=== PATIENT | male | born 1975 | race Caucasian/White ===

== ENCOUNTER 2017-05-02 20:37 | Inpatient (IN) | payer OTHER ==
[~2017-05-02] VITALS: Ht 188 cm; Wt 104.6 kg
[~2017-05-02 20:37] MED LIST: NO HOME MEDS; SERTRALINE; SIMVASTATIN20 MG PO; XANAX0.25 MG PO
[2017-05-02] MEDS ORDERED: ZYRTEC5 MG PO (20:47)
[2017-05-02] MEDS ORDERED: NORCO 325 MG-51 TAB PO (20:49)
[2017-05-02] MEDS ORDERED: FLAGYL 250250 MG/TAB PO (20:50)
[2017-05-02] MEDS ORDERED: CIPRO 500MG TA500 MG PO (20:50)
[2017-05-02 21:37] LABS: BASO % 0.3 % (0.0-2.0); EOS # 0.1 (0.0-0.7); EOS % 0.7 % (0-4.0); GRAN # 8.4 (1.4-6.5); HEMATOCRIT 44.5 % (42.0-52.0); HEMOGLOBIN 15.3 g/dl (13.5-18.0); LYMPH # 2.2 (1.2-3.4); LYMPH % 18.7 % (20.0-51.0); MEAN CELL VOLUME 84 fl (80.0-100.0); MEAN CORPUSCULAR HEMOGLOBIN 29 pg (27.0-31.0); MEAN CORPUSCULAR HGB CONC 34 g/dl (33.0-37.0); MEAN PLATELET VOLUME 9.4 fl (7.4-10.4); MONO # 0.8 (0.1-0.6); PLATELET COUNT 231 K/mm3 (130-400); WHITE BLOOD COUNT 11.5 K/mm3 (4.8-10.8)
[2017-05-02 21:54] LABS: ADJUSTED CALCIUM 8.8 mg/dL (8.4-10.2); ALBUMIN 4.6 gm/dL (3.5-5.0); BILIRUBIN,TOTAL 1.2 mg/dL (0.0-1.0); CALCIUM 9.3 mg/dL (8.4-10.2); CREATININE, serum 0.91 mg/dL (0.66-1.25); POTASSIUM 3.8 mmol/L (3.4-5.0); TOTAL PROTEIN 7.9 gm/dL (6.4-8.2)
[2017-05-03 00:16] VITALS: BP 121/60; PULSE 94; TEMP 98.7
[2017-05-03 04:01] LABS: COLLECTION METHOD CLEAN CATCH
[2017-05-03 04:07] LABS: MUCOUS Present /lpf; PH 5 (5-8); SQUAMOUS EPITHELIAL None Seen /hpf; URINE APPEARANCE Clear; URINE BACTERIA None Seen /hpf; URINE BILIRUBIN Negative (NEGATIVE); URINE BLOOD Negative (NEGATIVE); URINE COLOR Yellow; URINE GLUCOSE Negative (NEGATIVE); URINE KETONE Negative (NEGATIVE); URINE LEUKOCYTE ESTERASE Negative (NEGATIVE); URINE PROTEIN(semi-quant) Negative (NEGATIVE); URINE RBC None Seen /hpf; URINE UROBILINOGEN Negative (NEGATIVE); URINE WBC 0-2 /hpf
[2017-05-03 04:59] VITALS: BP 112/64; PULSE 86; TEMP 98.3
[2017-05-03 07:01] LABS: BASO % 0.2 % (0.0-2.0); EOS # 0.1 (0.0-0.7); EOS % 1.2 % (0-4.0); GRAN # 5.4 (1.4-6.5); GRAN % 63.3 % (42.2-75.2); HEMATOCRIT 39.2 % (42.0-52.0); LYMPH # 2.2 (1.2-3.4); LYMPH % 26.1 % (20.0-51.0); MEAN CELL VOLUME 86 fl (80.0-100.0); MEAN CORPUSCULAR HEMOGLOBIN 29 pg (27.0-31.0); MEAN CORPUSCULAR HGB CONC 33 g/dl (33.0-37.0); MEAN PLATELET VOLUME 9.6 fl (7.4-10.4); MONO # 0.8 (0.1-0.6); MONO % 8.8 % (1.7-9.3); PLATELET COUNT 188 K/mm3 (130-400); RED BLOOD COUNT 4.55 M/mm3 (4.20-5.60); WHITE BLOOD COUNT 8.6 K/mm3 (4.8-10.8)
[2017-05-03 07:09] LABS: HEMOGLOBIN 13.1 g/dl (13.5-18.0)
[2017-05-03 07:16] LABS: ADJUSTED CALCIUM 8.8 mg/dL (8.4-10.2); ALBUMIN 3.6 gm/dL (3.5-5.0); BILIRUBIN,TOTAL 0.9 mg/dL (0.0-1.0); CALCIUM 8.5 mg/dL (8.4-10.2); CHOLESTEROL RISK RATIO 5.2; CREATININE, serum 0.95 mg/dL (0.66-1.25); TOTAL PROTEIN 6.5 gm/dL (6.4-8.2)
[2017-05-03 07:55] VITALS: BP 118/65; PULSE 79; TEMP 98.7
[2017-05-03 11:53] VITALS: BP 109/68; PULSE 77; TEMP 97.7
[2017-05-03 15:42] VITALS: BP 117/74; PULSE 85; TEMP 98.4
[2017-05-03 21:04] VITALS: BP 105/55; PULSE 90; TEMP 99.4
[2017-05-04 00:33] VITALS: BP 121/75; PULSE 104; TEMP 101.5
[2017-05-04 04:03] VITALS: BP 107/67; PULSE 91; TEMP 100.1
[2017-05-04 08:07] VITALS: BP 111/74; PULSE 87; TEMP 99.1
[2017-05-04 11:16] VITALS: BP 124/79; PULSE 87; TEMP 98.4
[2017-05-04 14:11] LABS: BASO % 0.3 % (0.0-2.0); EOS # 0.2 (0.0-0.7); EOS % 2.1 % (0-4.0); GRAN % 57.9 % (42.2-75.2); HEMATOCRIT 39.6 % (42.0-52.0); HEMOGLOBIN 13.6 g/dl (13.5-18.0); LYMPH # 2.2 (1.2-3.4); LYMPH % 31.2 % (20.0-51.0); MEAN CELL VOLUME 84 fl (80.0-100.0); MEAN CORPUSCULAR HEMOGLOBIN 29 pg (27.0-31.0); MEAN CORPUSCULAR HGB CONC 34 g/dl (33.0-37.0); MEAN PLATELET VOLUME 9.7 fl (7.4-10.4); MONO # 0.6 (0.1-0.6); MONO % 8.2 % (1.7-9.3); PLATELET COUNT 223 K/mm3 (130-400); RED BLOOD COUNT 4.72 M/mm3 (4.20-5.60)
[2017-05-04 14:25] LABS: BILIRUBIN,TOTAL 0.8 mg/dL (0.0-1.0); CREATININE, serum 0.92 mg/dL (0.66-1.25); POTASSIUM 3.6 mmol/L (3.4-5.0); TOTAL PROTEIN 7.2 gm/dL (6.4-8.2)
[2017-05-04] MEDS ORDERED: FLAGYL500 MG PO ×2 (14:44→15:38)
[2017-05-04] MEDS ORDERED: CIPRO 500MG TA500 MG PO (14:44)
== END 2017-05-04 16:00 | disposition home or self-care (01) | DRG 392 ==
LOC: COL.ER 20:37 → MEDICAL 22:42
PROVIDERS: Emergency Medicine; Nurse Practitioner; Nurse Practitioner Family
DX: K57.32 Diverticulitis of large intestine without perforation or abscess without bleeding (principal)
CPT/HCPCS: 99222-AI; G0378; J0744; J1170; J1644; J2270; J2405; J7030; Q9967